=== PATIENT | male | born 1970 | race Caucasian/White ===

== ENCOUNTER 2020-05-01 09:57 | Outpatient (REF) | payer OTHER, SELFPAY ==
--- NOTE | 2020-05-01 16:59 | PFT_ITS ---
FLOWS: FEV1 of 79% of predicted at 2.98 L. FVC 77% of predicted at 3.76 L. FEV1 to FVC ratio of 0.79. No bronchodilator response except in small to medium airways. LUNG VOLUMES: Total lung capacity 83% of predicted at 5.57 L. Residual volume 97% of predicted at 1.97 L. Slow vital capacity 75% of predicted at 3.30 L. Expiratory reserve volume 38% of predicted at 0.55 L. Diffusion capacity is mildly decreased, diffusion capacity corrects to normal after adjustment for alveolar ventilation. IMPRESSION: No obstructive or restrictive ventilatory defect. No bronchodilator response except in small to medium airways. Decreased expiratory reserve volume suggests extrathoracic restriction likely secondary to abdominal obesity. MD MARK Taylor/MODL / [id number]
== END 2020-05-01 09:58 | disposition home or self-care (01) ==
LOC: HO.RESP 09:57
PROVIDERS: PCP Internal Medicine; Visit Provider Hospitalist
DX: J44.9 Chronic obstructive pulmonary disease, unspecified (principal)
CPT/HCPCS: 94060; 94727; 94729

== ENCOUNTER 2021-08-26 09:58 | Outpatient (REF) | payer OTHER, SELFPAY ==
--- NOTE | 2021-08-26 | PFT_ITS ---
FLOWS: FEV1 79% of predicted at 2.92 L. FVC 80% of predicted at 3.86 L. FEV1 to FVC ratio of 0.76. No bronchodilator response except in small to medium airways. LUNG VOLUMES: Total lung capacity 80% of predicted at 5.42 L. Residual volume 71% of predicted at 1.47 L. Slow vital capacity 83% of predicted at 3.95 L. Expiratory reserve volume 63% of predicted at 0.90 L. Diffusion capacity is mildly decreased, diffusion capacity corrects to normal after adjustment for alveolar ventilation. IMPRESSION: Borderline obstructive and borderline restrictive ventilatory defect with no bronchodilator response except in small to medium airways. MD MARK Taylor/MODL / [id number]
== END 2021-08-26 09:59 | disposition home or self-care (01) ==
LOC: HO.RESP 09:58
PROVIDERS: PCP Internal Medicine; Visit Provider Hospitalist
DX: R06.00 Dyspnea, unspecified (principal)
CPT/HCPCS: 94060; 94727; 94729

== ENCOUNTER → 2022-08-29 10:02 | Outpatient (BNVA) | payer OTHER, SELFPAY | PROVIDERS: PCP Internal Medicine; Visit Provider Hospitalist ==

== ENCOUNTER 2023-08-30 10:25 | Outpatient (AMB) | payer OTHER, SELFPAY ==
[2023-08-30 10:27] VITALS: BP 127/82; PULSE 66; O2SAT 97; BMI 29.9
--- NOTE | 2023-08-30 10:27 | A.OFFVIS_ITS ---
Vital Signs 08/30/23 10:27 Height 5 ft 9 in Weight 202 lb 4 oz BMI 29.9 BP 127/82 Blood Pressure Location Rt brachial Position Sitting Pulse 66 Pulse Source Doppler Pulse Oximetry (%) 97 Oxygen Delivery Method Room Air Intake Visit Reasons: copd Allergies No Known Allergies Allergy (Verified 08/30/23 10:30) HPI Comments Details: The patient is a 53-year-old gentleman with a known history of asthma COPD overlap syndrome, pulmonary nodules will plan to continues to have significant dyspnea symptoms. He did have a injury several years back resulting in complete tear of his right biceps and also dislocation of his sternoclavicular joint. He did underwent surgery for the biceps and then was evaluated for the problem with his SC joint. He was evaluated by thoracic surgery and underwent a surgical intervention. He has noticed that in certain positions of his arm and actually blocks is upper airway making it difficult to breathe. Sometimes he wakes up at nighttime short of breath. Also has daytime drowsiness. The patient has never had a sleep study. His [place] score is indeed elevated 04/16. I did encourage him to consider doing a sleep study. He will think about at this time. He also has a known pulmonary nodules. He has had multiple CT scans at [facility] last approximately February 2020 demonstrating subcentimeter stable pulmonary nodules. The patient did have a smoking history and therefore does nodules have to be monitor closely. He does have a hiatal hernia. We talked about the importance of the reflux diet. He also follows a gluten free diet for celiac disease. He continues with his current respiratory therapy. Although, he continues to be symptomatic some degree. Will have him undergo pulmonary function studies this time. 08/26/2020 the patient is here for pulmonary follow-up visit. Overall the patient has been doing about the same. Continues to complaint of dyspnea on exertion. He also has episodes of chest tightness that he describes his pain. He does use his respiratory medication as needed in his symptoms to improved. He continues to have pain in the clavicular area where he had a surgery. Sometimes it does affect his breathing when he moves his arm a certain way. He continues to have some daytime drowsiness however, the patient decided not to undergo the sleep study at this time. He did not have his formal pulmonary function studies, but instead he had a spirometry. It appears that the patient does not have a FX of obstructive ventilatory defect any longer. But, he does have small airways disease consistent with this history of asthma. He has been using his inhaler, Breztri, but he does not use it every day. Otherwise the ewdin gaona is without any other concerns or complaints period he should get a repeat CT scan of the chest in a year's time. 08/26/2021 the patient is here for a pulmonary follow-up visit. Overall the patient has been doing well. Continues to have some degree of dyspnea on exertion. [id number] severity. Still has a hard time swimming. Feels like it is hard to exhale. He does continue to uses medications with good adherence. He did undergo pulmonary function studies which were personally by me. It appears that he does have evidence of small airways disease and a reversible obstruction consistent with his asthma. It is currently controlled on the regimen. the patient is still having issues with fragmented sleep. Although he does not have any significant snoring waking up tired. Typically he has short naps and is able to function well. No need for sleep study at this time. in regards to his pulmonary nodules his last CT scan was done at [facility] by thoracic surgery. That was back in February 2021 demonstrating stable pulmonary nodules. Also stable pulse operative changes. 08/29/2022 the patient is here for pulmonary follow-up visit. The patient overall doing well. He is staying very active. He does not allow the asthma to get in his way. He continues to have wheezing on a daily basis although he does not use his medications as prescribed. He has been working on exercise to improve his respiratory from respiratory capacity. The patient also has been having issues with his hiatal hernia still getting some epigastric discomfort at times and sometimes having vasovagal episodes. This is likely there is secondary to esophageal spasms. Currently he is doing well from that standpoint he will follow up with his GI doctor. I did mention calcium channel blockers as an option in the future. 08/30/2023 the patient is here for a pulmonary follow-up visit. Overall the patient has been doing okay. He still requiring needs inhaler as prescribed. The patient still has been having issues with shortness of breath with activity. Also states that he is developing some substernal chest pressure. Sometimes he describes it as ?icy hot?. Moderate severity. It does subside after sitting down resting. He has a cardiac workup but 8-10 years ago. The patient has not had anything recent. Will go having get an EKG and also should have a stress t est at this time. In addition to that will have him get a chest x-ray. The patient will continue to take his inhalers as prescribed. Has not had any need for prednisone which is reassuring. Will follow-up in a year's time unless he develops any worsening symptoms he will call for an earlier assessment. [facility] Medical History (Updated 08/30/23 @ 22:38 by Kyle Garvin MD) Chest pain Asthma JONI (obstructive sleep apnea) Pulmonary nodules Hiatal hernia Hiatal hernia with gangrene Dyspnea Asthma-COPD overlap syndrome Family History (Updated 05/03/20 @ 22:15 by Kyle Garvin MD) Other Asthma Social History Patient Tobacco Use Status: Former Tobacco user Tobacco use type: Cigarette Years Smoked: 4 years Review of Systems Const Denies night sweats ENT Denies change in voice, Denies lip swelling, Denies mouth pain, Reports nasal congestion, Reports nasal discharge and Denies tongue swelling Card Denies chest pain and Denies dyspnea on exertion Resp Reports cough, Denies pain on inspiration, Denies pain with cough, Denies dyspnea on exertion and Reports wheezing GI Denies abdominal pain Musc Reports myalgias and Reports arthralgias Neuro Denies Neuro-related abnormal movements Psych Denies no additional complaints Morteza/Lymph Denies easy bleeding and Denies lymphadenopathy Aller/Immun Denies lip swelling, Denies tongue swelling and Reports wheezing Physical Exam Vital Signs: Last Vital Signs Pulse 66 08/30/23 10:27 BP 127/82 08/30/23 10:27 Pulse Ox 97 08/30/23 10:27 Oxygen Delivery Method Room Air 08/30/23 10:27 BMI result Body Mass Index 29.9 Const General: alert Eyes Pupils: Equal, round and reactive pupils present Neck Neck: Yes normal visual inspection, Yes full ROM and Yes no lymphadenopathy Chest Chest palpation & inspection: normal inspection of the chest Resp Effort & Inspection: prolonged expiratory phase Auscultation: wheezes and diminished lung sounds Cardio Rate: regular rate Rhythm: regular rhythm Heart sounds: S1 normal heart sound present and S2 normal heart sound present GI Palpation (GI): Soft to palpation and nontender Auscultation: normal bowel sounds Skin General skin exam: rashes and/or lesions noted Neuro Cranial nerves: Yes Equal, round and reactive pupils present Assessment & Plan Assessment & Plan (1) Pulmonary nodules: Code(s): R91.8 - Other nonspecific abnormal finding of lung field Category: Medical (2) Hiatal hernia: Comment: Likely contributing to respiratory symtoms Code(s): K44.9 - Diaphragmatic hernia without obstruction or gangrene Category: Medical (3) Asthma: Code(s): J45.909 - Unspecified asthma, uncomplicated Category: Medical Qualifiers: Asthma complication type: uncomplicated Asthma persistence: persistent Asthma severity: moderate Qualified Code(s): J45.40 - Moderate persistent asthma, uncomplicated (4) Chest pain: Code(s): R07.9 - Chest pain, unspecified Category: Medical Qualifiers: Chest pain type: other chest pain Qualified Code(s): R07.89 - Other chest pain Plan Continue Breztri inhaler continue Zyrtec Continue Singulair ETEHL as needed CXR EKG stress ECHO F/U 1yr Orders: Orders CA echo stress exercise Today R07.9 - Chest pain, unspecified XR chest 2V Today R07.9 - Chest pain, unspecified ECG 12 lead EKG Today R07.9 - Chest pain, unspecified Coding Level of Care Code Est Pt Level 4 (02681) Diagnoses Pulmonary nodules R91.8 Hiatal hernia K44.9 Moderate persistent asthma without complication J45.40 Asthma complication type: uncomplicated Asthma persistence: persistent Asthma severity: moderate Other chest pain R07.89 Chest pain type: other chest pain Time Spent (min) 17
== END 2023-08-30 11:06 | disposition home or self-care (01) ==
PROVIDERS: PCP Internal Medicine; Visit Provider Hospitalist
DX: R91.8 Other nonspecific abnormal finding of lung field (principal); K44.9 Diaphragmatic hernia without obstruction or gangrene; J45.40 Moderate persistent asthma, uncomplicated; R07.89 Other chest pain
CPT/HCPCS: 99214

== ENCOUNTER → 2023-08-30 10:25 | Outpatient (REF) | payer OTHER, SELFPAY ==
--- NOTE | ~2023-08-30 | XR_ITS ---
EXAMINATION: XR CHEST CLINICAL INFORMATION: Chest pain, unspecified COMPARISON: None available. TECHNIQUE: 2 views of the chest were obtained. FINDINGS: No significant abnormality is noted involving the heart, lungs, mediastinum, bony thorax or soft tissues. XR/XR chest 2V IMPRESSION: No acute cardiopulmonary disease.
--- NOTE | 2023-08-30 11:12 | ECG_ITS ---
Test Reason : chest pain Blood Pressure : / mmHG Vent. Rate : 059 BPM Atrial Rate : 059 BPM P-R Int : 150 ms QRS Dur : 108 ms QT Int : 422 ms P-R-T Axes : 025 026 040 degrees QTc Int : 417 ms Sinus bradycardia with sinus arrhythmia Otherwise normal ECG No previous ECGs available Referred By: Kyle Garvin Electronically Signed By:Juan José Go
== END ==
LOC: HO.CARD 10:25
PROVIDERS: PCP Internal Medicine; Visit Provider Hospitalist
DX: R07.89 Other chest pain (principal); K44.9 Diaphragmatic hernia without obstruction or gangrene; R91.8 Other nonspecific abnormal finding of lung field; J45.40 Moderate persistent asthma, uncomplicated
CPT/HCPCS: 71046; 93005

== ENCOUNTER → 2023-08-30 11:12 | Outpatient (BNV) | payer OTHER, SELFPAY | PROVIDERS: PCP Internal Medicine; Visit Provider Internal Medicine Cardiovascular Disease | DX: R07.9 Chest pain, unspecified (principal); R00.1 Bradycardia, unspecified | CPT/HCPCS: 93010 ==

== ENCOUNTER 2024-10-31 09:58 | Outpatient (AMB) | payer OTHER, SELFPAY ==
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
--- NOTE | 2024-10-31 10:01 | MHC.OFFVIS ---
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 He did have a injury several years back resulting in complete tear of his right biceps and also dislocation of his sternoclavicular joint. He did underwent surgery for the biceps and then was evaluated for the problem with his SC joint. He was evaluated by thoracic surgery and underwent a surgical intervention. He has noticed that in certain positions of his arm and actually blocks is upper airway making it difficult to breathe. Sometimes he wakes up at nighttime short of breath. Also has daytime drowsiness. The patient has never had a sleep study. His Ellerslie score is indeed elevated 04/16. I did encourage him to consider doing a sleep study. He will think about at this time. He also has a known pulmonary nodules. He has had multiple CT scans at [facility] last approximately February 2020 demonstrating subcentimeter stable pulmonary nodules. The patient did have a smoking history and therefore does nodules have to be monitor closely. He does have a hiatal hernia. We talked about the importance of the reflux diet. He also follows a gluten free diet for celiac disease. He continues with his current respiratory therapy. Although, he continues to be symptomatic some degree. Will have him undergo pulmonary function studies this time. 08/26/2020 the patient is here for pulmonary follow-up visit. Overall the patient has been doing about the same. Continues to complaint of dyspnea on exertion. He also has episodes of chest tightness that he describes his pain. He does use his respiratory medication as needed in his symptoms to improved. He continues to have pain in the clavicular area where he had a surgery. Sometimes it does affect his breathing when he moves his arm a certain way. He continues to have some daytime drowsiness however, the patient decided not to undergo the sleep study at this time. He did not have his formal pulmonary function studies, but instead he had a spirometry. It appears that the patient does not have a FX of obstructive ventilatory defect any longer. But, he does have small airways disease consistent with this history of asthma. He has been using his inhaler, Breztri, but he does not use it every day. Otherwise the patient is without any other concerns or complaints period he should get a repeat CT scan of the chest in a year's time. 08/26/2021 the patient is here for a pulmonary follow-up visit. Overall the patient has been doing well. Continues to have some degree of dyspnea on exertion. [id number] severity. Still has a hard time swimming. Feels like it is hard to exhale. He does continue to uses medications with good adherence. He did undergo pulmonary function studies which were personally by me. It appears that he does have evidence of small airways disease and a reversible obstruction consistent with his asthma. It is currently controlled on the regimen. the patient is still having issues with fragmented sleep. Although he does not have any significant snoring waking up tired. Typically he has short naps and is able to function well. No need for sleep study at this time. in regards to his pulmonary nodules his last CT scan was done at [facility] by thoracic surgery. That was back in February 2021 demonstrating stable pulmonary nodules. Also stable pulse operative changes. 08/29/2022 the patient is here for pulmonary follow-up visit. The patient overall doing well. He is staying very active. He does not allow the asthma to get in his way. He continues to have wheezing on a daily basis although he does not use his medications as prescribed. He has been working on exercise to improve his respiratory from respiratory capacity. The patient also has been having issues with his hiatal hernia still getting some epigastric discomfort at times and sometimes having vasovagal episodes. This is likely there is secondary to esophageal spasms. Currently he is doing well from that standpoint he will follow up with his GI doctor. I did mention calcium channel blockers as an option in the future. 08/30/2023 the patient is here for a pulmonary follow-up visit. Overall the patient has been doing okay. He still requiring needs inhaler as prescribed. The patient still has been having issues with shortness of breath with activity. Also states that he is developing some substernal chest pressure. Sometimes he describes it as ?icy hot?. Moderate severity. It does subside after sitting down resting. He has a cardiac workup but 8-10 years ago. The patient has not had anything recent. Will go having get an EKG and also should have a stress test at this time. In addition to that will have him get a chest x-ray. The patient will continue to take his inhalers as prescribed. Has not had any need for prednisone which is reassuring. Will follow-up in a year's time unless he develops any worsening symptoms he will call for an earlier assessment. 10/31/2024 the patient is here for a pulmonary follow-up visit. Overall he is doing well. He continues to have symptoms of chest tightness and wheezing. He tends to respond better to the Spiriva. In addition to that having significant SVT with a heart rate elevated up to 240 beats per minute per the patient's report. He is going to undergo ablation today. Therefore, will hold off on any type of long-acting beta agonist that can affect his heart condition. Will keep him on a long-acting muscarinic antagonist by itself. If he does need his rescue inhaler he should have 1 available for those locations. As far as imaging studies last chest x-ray was back in August of 2023 demonstrating no acute disease. Cardiac-garcia he is following closely with Cardiology which is reassuring. No further chest pains at this point. The patient follow-up in a year's time. We did talk about vaccines he needs to get his pneumonia vaccine updated. He has any issues prior to the next visit he will call for further recommendations. [facility] Medical History (Updated 08/30/23 @ 22:38 by Kyle Garvin MD) Chest pain Asthma JONI (obstructive sleep apnea) Pulmonary nodules Hiatal hernia Hiatal hernia with gangrene Dyspnea Asthma-COPD overlap syndrome Family History (Updated 05/03/20 @ 22:15 by Kyle Garvin MD) Other Asthma Social History Patient Tobacco Use Status: Former Tobacco user Tobacco use type: Cigarette Years Smoked: 4 years Review of Systems Const Denies night sweats ENT Denies change in voice, Denies lip swelling, Denies mouth pain, Reports nasal congestion, Reports nasal discharge and Denies tongue swelling Card Denies chest pain and Reports dyspnea on exertion Resp Reports cough, Denies pain on inspiration, Denies pain with cough, Reports dyspnea on exertion and Reports wheezing GI Denies abdominal pain Musc Reports myalgias and Reports arthralgias Neuro Denies Neuro-related abnormal movements Psych Denies no additional complaints Morteza/Lymph Denies easy bleeding and Denies lymphadenopathy Aller/Immun Denies lip swelling, Denies tongue swelling and Reports wheezing Physical Exam Vital Signs: Last Vital Signs Pulse 82 10/31/24 10:02 BP 130/92 H 10/31/24 10:02 Pulse Ox 97 10/31/24 10:02 Oxygen Delivery Method Room Air 10/31/24 10:02 Const General: alert Eyes Pupils: Equal, round and reactive pupils present Neck Neck: Yes normal visual inspection, Yes full ROM and Yes no lymphadenopathy Chest Chest palpation & inspection: normal inspection of the chest Resp Effort & Inspection: prolonged expiratory phase Auscultation: diminished lung sounds Cardio Rate: regular rate Rhythm: regular rhythm Heart sounds: S1 normal heart sound present and S2 normal heart sound present GI Palpation (GI): Soft to palpation and nontender Auscultation: normal bowel sounds Skin General skin exam: rashes and/or lesions noted Neuro Cranial nerves: Yes Equal, round and reactive pupils present Assessment & Plan Assessment & Plan (1) Pulmonary nodules: Code(s): R91.8 - Other nonspecific abnormal finding of lung field Category: Medical (2) Hiatal hernia: Comment: Likely contributing to respiratory symtoms Code(s): K44.9 - Diaphragmatic hernia without obstruction or gangrene Category: Medical (3) Asthma: Code(s): J45.909 - Unspecified asthma, uncomplicated Category: Medical Qualifiers: Asthma complication type: uncomplicated Asthma persistence: persistent Asthma severity: moderate Qualified Code(s): J45.40 - Moderate persistent asthma, uncomplicated (4) Chest pain: Code(s): R07.9 - Chest pain, unspecified Category: Medical Qualifiers: Chest pain type: other chest pain Qualified Code(s): R07.89 - Other chest pain Plan stop Breztri inhaler due to SVT start Spiriva Respimet continue Zyrtec Continue Singulair ETHEL as needed F/U 1yr Medications: New tiotropium bromide 2.5 mcg/actuation (Spiriva Respimat) 2 puffs inhalation DAILY 3 ea 3RF 90 days Discontinued [id number] 160-9-4.8 mcg/actuation (Breztri Aerosphere) Discontinued Reason: Doctor's Order 2 inhalations inhalation BID 30 days 10.7 grams 11RF Coding Level of Care Code Est Pt Level 4 (86585) Diagnoses Pulmonary nodules R91.8 Hiatal hernia K44.9 Moderate persistent asthma without complication J45.40 Asthma complication type: uncomplicated Asthma persistence: persistent Asthma severity: moderate Other chest pain R07.89 Chest pain type: other chest pain Time Spent (min) 16
[2024-10-31 10:02] VITALS: BP 130/92; PULSE 82; O2SAT 97
--- OUTSIDE RECORDS SUMMARY | 2024-10-31 10:33 | XMS_ITS | Clinical Summary ---
Author Organization [facility] Address [address] [place] [address] Phone Care Team Providers Care Life Claims Examiner Name Role Phone Eriberto Jim MD Primary Care Provider [phone] Allergies Active Allergy Reactions Criticality Noted Date Comments Gluten 01/19/2022 Sertraline 01/19/2022 Other Reaction(s): Cognitive impairment Wheat Bran 04/04/2017 No reaction documented in transfer records Medications diclofenac (VOLTAREN) 50 mg EC tablet TAKE 1 TABLET BY MOUTH TWICE DAILY WITH FOOD NEEDED. DO NOT TAKE WITH CELEBREX OR IBUPROFEN. FOR UP TO 30 DAYS 3 Active hyaluronate sodium, stabilized 60 mg/3 mL syringe intra-articular injection Inject 60 mL into the articular space Once for 1 dose. For the treatment of bilateral knee osteoarthritis. Patient has tried cortisone injections without lasting relief. 2 Active gabapentin (NEURONTIN) 100 mg capsule Take 300 mg by mouth at bedtime. 2 Active celecoxib (CeleBREX) 100 mg capsule Take 1 capsule (100 mg total) by mouth 2 (two) times a day. 2 Active montelukast (SINGULAIR) 10 mg tablet TAKE 1 TABLET BY MOUTH AT BEDTIME 9 Active fluticasone-valerie meterol (ADVAIR DISKUS) 250-50 mcg/dose diskus inhaler Inhale 1 Puff into the lungs every 12 hours. 8 Active clonazePAM (KlonoPIN) 0.5 mg tablet Take 0.5 mg by mouth 2 times daily as needed. Active naproxen sodium (ANAPROX) 220 mg tablet Take 220 mg by mouth 2 times daily (with meals). Active albuterol HFA (PROAIR HFA ; PROVENTIL HFA ; VENTOLIN HFA) 90 mcg/actuation inhaler Inhale 2 puffs by mouth every 4 (four) hours if needed. Active albuterol 2.5 mg /3 mL (0.083 %) nebulizer solution Take 1 Vial by nebulization every 4 hours as needed. Active polyethylene glycol (Golytely) 236-22.74-6.74 -5.86 gram solution Take 4L by mouth once for one dose. May substitue any PEG. Starting at 6PM the night before your procedure drink 1 8oz glasses at your own pace until you complete half of the gallon. Finish 2nd half of the gallon 5 hours before your procedure. 4000 mL 5 Active bisacodyL (DULCOLAX) 5 mg EC tablet Take 2 tablets by mouth right before beginning bowel prep. See instructions provided by the office 2 tablet 5 Active Active Problems Problem Noted Date Diagnosed Date Anxiety disorder 01/19/2022 Chronic low back pain 01/19/2022 Insomnia 01/19/2022 Obesity 01/19/2022 Allergic rhinitis 04/04/2017 Asthma 04/04/2017 Celiac disease 04/04/2017 Chronic bronchitis ([facility], [facility] [place] Chronic obstructive pulmonar y disease (COPD) ([facility] [place], [facility] V28) 04/04/2017 Encounters Date Type Department Care Team Description 08/20/2024 7:56 AM EDT Anesthesia Event [facility] [address] [place] [address] Tracey Ruffin MD Georgette, Nathaniel, CRNA 08/20/2024 6:56 AM EDT - 08/20/2024 11:59 PM EDT Hospital Encounter [facility] [address] [place] [address] Bucth Raines MD Freeman, Katharine O, MD Georgette, Nathaniel, CRNA Colon cancer screening; Dyspepsia Discharge Disposition: Home or Self Care 08/06/2024 1:20 PM EDT Office Visit [facility] [place] [address] [place] [address] Subha Underwood NP Abdominal bloating (Primary Dx); Erosive esophagitis; Dyspepsia 08/06/2024 Telephone [facility] [place] [address] [place] [address] Subha Underwood NP from Last 3 Months Immunizations Name Administration Dates Next Due Influenza Quadravalent, MDCK , 0.5ml, preservative free (Flucelvax) 6mo and older 04/30/2018 Influenza trivalent, 0.5mL, preservative free (Fluarix; FluLaval; Fluzone) ages 6mo and older (Afluria) 3 years and older 03/31/2015 Pneumococcal conjugate 13 va lent (Prevnar 13, PCV13) 2mo and older 05/02/2017 Surgical History Surgery Date Site/Laterality Comments CARPAL TUNNEL RELEASE Bilateral PROCEDURE: HISTORICAL CARPAL TUNNEL REL KNEE SURGERY Right PROCEDURE: HISTORICAL KNEE SURGERY; COMMENT: Arthroscopy and Open Lateral Meniscectomy COLONOSCOPY PROCEDURE: HISTORICAL COLONOSCOPY OTHER SURGICAL HISTORY Right PROCEDURE: CO TENODESIS BICEPS TENDON ELBOW SEPARATE PROCEDURE OTHER SURGICAL HISTORY Right PROCEDURE: CO PARTIAL EXCISION BONE CLAVICLE; COMMENT: Proximal Clavicle Excision with excisional biopsy of lung tumor Medical History Medical History Date Comments Allergic rhinitis 04/04/2017 DX:Allergic rh initis Asthma 04/04/2017 DX:Asthma Celiac disease 04/04/2017 DX:Celiac diseas e Chronic bronchitis ([facility] V24, [facility] V28) 04/04/2017 DX:Chronic bronchitis (HCC) Chronic obstructive pulmonar y disease (COPD) ([facility] V24, [facility] V28) 04/04/2017 DX:Chronic obstructi ve pulmonary disease (COPD) ([facility]) Esophageal reflux DX:Esophageal reflux Family History Medical History Relation Name Comments Colon cancer Father Angioplasty Asthma Mother Asthma Sister Relation Name Status Comments Father Mother Sister Social History Tobacco Use Types Packs/Day Years Used Date Smoking Tobacco: Former Smokeless Tobacco: Former Quit: 04/24/2015 Alcohol Use Standard Drinks/Week Comments Yes 0 (1 standard drink = 0.6 oz pur e alcohol) Interpersonal Safety Answer Date Record ed Physical Abuse 08/20/2024 Verbal Abuse 08/20/2024 Sex and Gender Information Value Date Recorded Sex Assigned at Not on file Legal Sex Male 2:50 PM EST Gender Identity Not on file Sexual Orientation Not on file Obstetrics History Last Filed Vital Signs Vital Sign Reading Time Taken Comments Blood Pressure 132/104 08/20/2024 8:43 AM EDT Pulse 68 08/20/2024 8:43 AM EDT Temperature 36.7 C (98 F) 08/20/2024 8:22 AM EDT Respiratory Rate 17 08/20/2024 8:43 AM EDT Oxygen Saturation 97% 08/20/2024 8:43 AM EDT Inhaled Oxygen Concentration - - Weight 97.8 kg (215 lb 9.6 oz) 08/12/2024 11:00 AM EDT Height 175.3 cm (5' 9 ) 08/12/2024 11:00 AM EDT Body Mass Index 31.84 08/12/2024 11:00 AM EDT Plan of Treatment Health Maintenance Due Date Last Done Comments Hepatitis B Vaccines (1 of 3 - 19+ 3-dose series) 02/25/1987 Pneumococcal Vaccine: 50+ Years (2 of 2 - PPSV23) 06/27/2017 05/02/2017 Zoster Vaccines (1 of 2) 02/25/2018 DTaP,Tdap,and Td Vaccines (2 - Td or Tdap) 06/11/2020 06/11/2010 Cholesterol Screening (Lipid Panel) 03/23/2022 Depression Screening 03/23/2022 HIV Screening 03/23/2022 Hepatitis C Screening 03/23/2022 Social Influencers of Health Screening 03/23/2022 COVID-19 Vaccine ( season) 2023 06/24/2020, 06/03/2020 Influenza Vaccine (#1) 2024 , 04/30/2018, 04/27/2018, Additional history exists Colorectal Cancer Screening: Colonoscopy 08/20/2034 08/20/2024, 06/14/2018 HIB Vaccines Aged Out No longer eligi ble based on patient's age to complete this topic HPV Vaccines Aged Out No longer eligi ble based on patient's age to complete this topic Hepatitis A Vaccines Aged Out No long er eligible based on patient's age to complete this topic IPV Vaccines Aged Out No longer eligi ble based on patient's age to complete this topic MMR Vaccines Aged Out No longer eligi ble based on patient's age to complete this topic Meningococcal ACWY Vaccine Aged Out N o longer eligible based on patient's age to complete this topic Meningococcal B Vaccine Aged Out No l onger eligible based on patient's age to complete this topic RSV Immunization Patients Under 20 months Aged Out No longer eligible based on patient's age to complete this topic Varicella Vaccines Aged Out No longer eligible based on patient's age to complete this topic Procedures Procedure Name Priority Date/Time Associated Diagnosis Comments EGD Routine 08/20/2024 8:21 AM EDT Dyspepsia COLONOSCOPY Routine 08/20/2024 8:21 AM EDT Colon cancer screening TISSUE EXAM Routine 08/20/2024 8:15 AM EDT Colon cancer screening Dyspepsia from Last 3 Months Results * COLONOSCOPY Anesthesia - MAC; [facility] ENDOSCOPY (08/20/2024 8:21 AM EDT) Anatomical Region Laterality Modality Endoscopy 08/20/2024 8:05 AM EDT Impressions 08/20/2024 8:22 AM EDT - Two 2 to 3 mm polyps in the descending colon, removed with a jumbo cold forceps. Resected and retrieved. - Diverticulosis in the entire examined colon. - The examination was otherwise normal on direct and retroflexion views. Recommendation: - Patient has a contact number available for emergencies. The signs and symptoms of potential delayed complications were discussed with the patient. Return to normal activities tomorrow. Written discharge instructions were provided to the patient. - Resume previous diet. - Continue present medications. - Await pathology results. - Repeat colonoscopy in 7-10 years for surveillance. Narrative 08/20/2024 8:[address] [facility] Patient Name: Devendra Moreno Procedure Date: 08/20/2024 8:05 AM Date of : 1970 Age: 54 Room: ROOM 17 Gender: Male Note Status: Finalized Attending MD: Butch Raines MD, Procedure Date No Time: 08/20/2024 Procedure: Colonoscopy Indications: High risk colon cancer surveillance: Personal history of colonic polyps Providers: Bucth Raines MD Referring MD: Butch Raines MD Medicines: Monitored Anesthesia Care Complications: No immediate complications. Estimated Blood Loss: Estimated blood loss: none. Procedure: After I obtained informed consent, the scope was passed under direct vision. Throughout the procedure, the patient's blood pressure, pulse, and oxygen saturations were monitored continuously. The Olympus Colonoscope was introduced through the anus and advanced to the cecum, identified by appendiceal orifice and ileocecal valve. The colonoscopy was performed without difficulty. The patient tolerated the procedure well. The quality of the bowel preparation was good. Findings: Two sessile polyps were found in the descending colon. The polyps were 2 to 3 mm in size. These polyps were removed with a jumbo cold forceps. Resection and retrieval were complete. Multiple small and large-mouthed diverticula were found in the entire colon. The exam was otherwise without abnormality on direct and retroflexion views. Procedure Code(s): --- Professional --- 85427, Colonoscopy, flexible; with biopsy, single or multiple Diagnosis Code(s): --- Professional --- K57.30, Diverticulosis of large intestine without perforation or abscess without bleeding D12.4, Benign neoplasm of descending colon Z86.010, Personal history of colonic polyps CPT copyright 2020 [employer]. All rights reserved. The codes documented in this report are preliminary and upon pharmacology professor review may be revised to meet current compliance requirements. MD Butch Alvarez MD 08/20/2024 8:22:23 AM This report has been signed electronically.Butch Raines MD Number of Addenda: 0 Note Initiated On: 08/20/2024 8:05 AM Scope In: Scope Out: Endoscopy Department at [facility] - [address] [place] [id number] Procedure Note Butch Raines MD - 08/20/2024 [facility] Patient Name: Devendra Moreno Procedure Date: 08/20/2024 8:05 AM Date of : 1970 Age: 54 Room: ROOM 17 Gender: Male Note Status: Finalized Attending MD: Butch Raines MD, Procedure Date No Time: 08/20/2024 Procedure: Colonoscopy Indications: High risk colon cancer surveillance: Personalhistory of colonic polyps Providers: Butch Raines MD Referring MD: Butch Raines MD Medicines: Monitored Anesthesia Care Complications: No immediate complications. Estimated Blood Loss: Estimated blood loss: none. Procedure: After I obtained informed consent, the scope was passed under direct vision. Throughout theprocedure, the patient's blood pressure, pulse, and oxygen saturations were monitored continuously. TheOlympus Colonoscope was introduced through the anus and advanced to the cecum, identified by appendiceal orifice and ileocecal valve. The colonoscopy was performed without difficulty. The patient tolerated the procedure well. The quality of the bowel preparation was good. Findings: Two sessile polyps were found in the descendingcolon. The polyps were 2 to 3 mm in size. These polypswere removed with a jumbo cold forceps. Resection and retrieval were complete. Multiple small and large-mouthed diverticula were found in the entire colon. The exam was otherwise without abnormality ondirect and retroflexion views. Procedure Code(s): --- Professional --- 18641, Colonoscopy, flexible; with biopsy, singleor multiple Diagnosis Code(s): --- Professional --- K57.30, Diverticulosis of large intestine without perforation or abscess without bleeding D12.4, Benign neoplasm of descending colon Z86.010, Personal history of colonic polyps CPT copyright 2020 [employer]. All rights reserved. The codes documented in this report are preliminary and upon pharmacology professor reviewmay be revised to meet current compliance requirements. MD Butch Alvarez MD 08/20/2024 8:22:23 AM This report has been signed electronically.Butch Raines MD Number of Addenda: 0 Note Initiated On: 08/20/2024 8:05 AM Scope In: Scope Out: Endoscopy Department at [facility] - [address] [place] [id number] IMPRESSION: - Two 2 to 3 mm polyps in the descending colon, removed with a jumbo cold forceps. Resected and retrieved. - Diverticulosis in the entire examined colon. - The examination was otherwise normal on directand retroflexion views. Recommendation: - Patient has a contact number available for emergencies. The signs and symptoms of potential delayed complications were discussed with thepatient. Return to normal activities tomorrow. Written discharge instructions were provided to thepatient. - Resume previous diet. - Continue present medications. - Await pathology results. - Repeat colonoscopy in 7-10 years [facility]. [place] Kaleigh Acevedo MD GI~PROCEDURE ORDERABLES Fin al Result * EGD Anesthesia - MAC; [facility] ENDOSCOPY (08/20/2024 8:21 AM EDT) Anatomical Region Laterality Modality Endoscopy 08/20/2024 7:57 AM EDT Impressions 08/20/2024 8:24 AM EDT - No specimens collected. Recommendation: - Patient has a contact number available for emergencies. The signs and symptoms of potential delayed complications were discussed with the patient. Return to normal activities tomorrow. Written discharge instructions were provided to the patient. - Resume previous diet. - Continue present medications. - Follow an antireflux regimen indefinitely. Narrative 08/20/2024 8:[address] [facility] Patient Name: Devendra Moreno Procedure Date: 08/20/2024 7:57 AM Date of : 1970 Age: 54 Room: ROOM 17 Gender: Male Note Status: Finalized Attending MD: Butch Raines MD, Procedure Date No Time: 08/20/2024 Procedure: Upper GI endoscopy Indications: Heartburn Providers: Butch Raines MD Referring MD: Butch Raines MD Medicines: Monitored Anesthesia Care Complications: No immediate complications. Estimated Blood Loss: Estimated blood loss: none. Procedure: After obtaining informed consent, the endoscope was passed under direct vision. Throughout the procedure, the patient's blood pressure, pulse, and oxygen saturations were monitored continuously.The Endoscope was introduced through the mouth, and advanced to the third part of duodenum. The upper GI endoscopy was accomplished without difficulty. The patient tolerated the procedure well. Findings: The esophagus was normal. Perhaps some slight irregularity at the z line, at 38 cm in. No Viveros's/ The stomach was normal. The examined duodenum was normal. Procedure Code(s): --- Professional --- 65216, Esophagogastroduodenoscopy, flexible, transoral; diagnostic, including collection of specimen(s) by brushing or washing, when performed (separate procedure) Diagnosis Code(s): --- Professional --- R12, Heartburn CPT copyright 2020 [employer]. All rights reserved. The codes documented in this report are preliminary and upon pharmacology professor review may be revised to meet current compliance requirements. MD Butch Alvarez MD 08/20/2024 8:24:28 AM This report has been signed electronically.Butch Raines MD Number of Addenda: 0 Note Initiated On: 08/20/2024 7:57 AM Scope In: Scope Out: Endoscopy Department at [facility] - [address] [place] [id number] Procedure Note Butch Raines MD - 08/20/2024 [facility] Patient Name: Devendra Moreno Procedure Date: 08/20/2024 7:57 AM Date of : 1970 Age: 54 Room: ROOM 17 Gender: Male Note Status: Finalized Attending MD: Butch Raines MD, Procedure Date No Time: 08/20/2024 Procedure: Upper GI endoscopy Indications: Heartburn Providers: Butch Raines MD Referring MD: Butch Raines MD Medicines: Monitored Anesthesia Care Complications: No immediate complications. Estimated Blood Loss: Estimated blood loss: none. Procedure: After obtaining informed consent, the endoscope was passed under direct vision. Throughout theprocedure, the patient's blood pressure, pulse, and oxygen saturations were monitored continuously.TheEndoscope was introduced through the mouth, and advanced tothe third part of duodenum. The upper GI endoscopy was accomplished without difficulty. The patienttolerated the procedure well. Findings: The esophagus was normal. Perhaps some slight irregularity at the z line, at 38 cm in. NoBarrett's/ The stomach was normal. The examined duodenum was normal. Procedure Code(s): --- Professional --- 95567, Esophagogastroduodenoscopy, flexible, transoral; diagnostic, including collection of specimen(s) by brushing or washing, when performed (separate procedure) Diagnosis Code(s): --- Professional --- R12, Heartburn CPT copyright 2020 [employer]. All rights reserved. The codes documented in this report are preliminary and upon pharmacology professor reviewmay be revised to meet current compliance requirements. MD Butch Alvarez MD 08/20/2024 8:24:28 AM This report has been signed electronically.Butch Raines MD Number of Addenda: 0 Note Initiated On: 08/20/2024 7:57 AM Scope In: Scope Out: Endoscopy Department at [facility] - [address] [place] [phone] IMPRESSION: - No specimens collected. Recommendation: - Patient has a contact number available for emergencies. The signs and symptoms of potential delayed complications were discussed with thepatient. Return to normal activities tomorrow. Written discharge instructions were provided to thepatient. - Resume previous diet. - Continue present medications. - Follow an antireflux regimen indefinitely. Butch Raines MD GI~PROCEDURE ORDERABLES Final R esult * Tissue exam (08/20/2024 8:15 AM EDT) Final Diagnosis Descending colon polyps x2: Tubular adenoma, two 08/22/2024 8:51 AM EDT [facility] Gross Description A. Large Intestine, Left/Descending Colon, polyp x 2: Labeled descending colon polyp x 2 . Received in formalin are two irregular disrupted mcmahon mucosal tissue fragments, each measuring approximately 0.3 cm in greatest dimension, which are wrapped in paper and submitted in toto in one cassette, two pieces, multiple levels on one slide. DEYVI 08/22/2024 8:51 AM EDT [facility] Disclaimer Unless otherwise specified, all tissue is 10% NB formalin fixed and paraffin embedded. 08/22/2024 8:51 AM EDT [facility] Tissue Descending colon structure / Unknown 08/20/2024 8:15 AM EDT 08/20/2024 9:47 AM EDT Butch Raines MD LAB PATHOLOGY ORDERABLES Final Result [facility] [address] [place] [address], from Last 3 Months Insurance [facility] Care Teams Life Claims Examiner Relationship Specialty Start Date End Date Eriberto Jim MD [address] [place] [id number] PCP - General Internal Medicine 03/21/17
== END 2024-10-31 11:38 | disposition home or self-care (01) ==
LOC: HO.HPS 09:58
PROVIDERS: PCP Internal Medicine; Visit Provider Hospitalist
DX: R91.8 Other nonspecific abnormal finding of lung field (principal); K44.9 Diaphragmatic hernia without obstruction or gangrene; J45.40 Moderate persistent asthma, uncomplicated; R07.89 Other chest pain
CPT/HCPCS: 99214